=== PATIENT | female | born 1945 | race Asian ===

== ENCOUNTER → 2019-09-29 | Outpatient (CLI) | payer OTHER ==
[~2019-09-29] MED LIST: AMLO5TAB9 PO; ASPI-1111 PO; ISOS10TA16 PO; SIMV-260 PO
== END | disposition home or self-care (01) ==
LOC: RADPV 09:03
PROVIDERS: ATTEND Internal Medicine Nephrology
DX: N28.1 Cyst of kidney, acquired (principal); R80.9 Proteinuria, unspecified
CPT/HCPCS: 76770